=== PATIENT | female | born 1995 | race Caucasian/White ===

== ENCOUNTER 2016-12-16 18:47 | Emergency (ER) | payer OTHER ==
[2016-12-16 18:59] VITALS: BP 148/96
[2016-12-16] MEDS ORDERED: NS 0.9% 1000 ML* 1,000 ML IV ONE (19:16)
[2016-12-16] MEDS ORDERED: Ondansetron INJ* 2 MG/ML VIAL IV ONE (19:17)
[2016-12-16] MEDS ORDERED: Ketorolac INJ* 30 MG/ML 1 ML VIAL IV PUSH ONE (19:18)
--- NOTE | 2016-12-16 19:44 | UC ---
Complaint Female HPI - HPI Summary HPI Summary: LAST NIGHT FELT LIKE SHE HAD TO URINATE MORE FREQUENTLY. 1.5 HOURS AGO BEGAN TO HAVE EXQUISTELY PAINFUL LEFT FLANK PAIN. WITH VOMITNG AND NAUSEA. CURRENTLY ON PERIOD. HISTORY OF KIDNEY STONES ON RIGHT SIDE. NO FEVER. NO ABDOMINAL PAIN. - History Of Current Complaint Chief Complaint: UCBackPain Stated Complaint: POSSIBLE UTI Time Seen by Provider: 12/16/16 18:50 Hx Obtained From: Patient Hx Last Menstrual Period: 12/15/16 ?: No Onset/Duration: Sudden Onset, Lasting Hours, Still Present Timing: Intermittent, Lasting Hours Severity Initially: Mild - LAST NIGHT Severity Currently: Severe - 1.5 HOURS AGO Character: Sharp, Cramping Aggravating Factor(s): Movement, Urination Associated Signs And Symptoms: Positive: Back Pain, Nausea, Vomiting(# Of Episodes =) - Allergies/Home Medications Allergies/Adverse Reactions: Allergies Allergy/AdvReac Type Severity Reaction Status Date / Time No Known Allergies Allergy Verified 02/20/14 08:08 Home Medications: Home Medications Norethindr/Eth Estradiol(Nf) [Lo Loestrin Fe (NF)] 1 tab PO DAILY 12/16/16 [ History Confirmed 12/16/16] PMH/Surg Hx/FS Hx/Imm Hx Previously Healthy: Yes Endocrine History Of: Denies: Diabetes, Thyroid Disease Cardiovascular History Of: Denies: Cardiac Disorders, Hypertension Respiratory History Of: Denies: COPD, Asthma GI/ History Of: Reports: Kidney Stones - RT 10/24/13 Denies: Ulcer Neurological History Of: Reports: Seizures - COMPLEX PARTIAL SEIZURE DISORDER, LAST SPRING - Surgical History Surgical History: Yes Surgery Procedure, Year, and Place: ADENOIDECTOMY, AGE 5, [facility] lithotripsy, bladder polyp removal - Family History Known Family History: Positive: Renal Disease - RIGHT SIDED KIDENY STONES - Social History Occupation: Student Lives: With Family Alcohol Use: None Substance Use Type: None Smoking Status (MU): Never Smoked Tobacco Review of Systems Constitutional: Negative Skin: Negative Eyes: Negative ENT: Negative Respiratory: Negative Cardiovascular: Negative Gastrointestinal: Vomiting Genitourinary: Dysuria, Hematuria, Frequency, Urgency Motor: Negative Neurovascular: Negative Musculoskeletal: Negative Neurological: Negative Psychological: Negative All Other Systems Reviewed And Are Negative: Yes Physical Exam Triage Information Reviewed: Yes Appearance: Well-Appearing, Well-Nourished, Pain Distress Vital Signs: Initial Vital Signs Temp 98.1 F 12/16/16 18:54 Pulse 109 12/16/16 18:54 Resp 18 12/16/16 18:54 BP 148/96 12/16/16 18:54 Pulse Ox 97 12/16/16 18:54 Vital Signs Reviewed: Yes Eye Exam: Normal ENT Exam: Normal ENT: Positive: Normal ENT inspection, Hearing grossly normal, Pharynx normal, TMs normal Dental Exam: Normal Neck: Positive: Supple, Nontender, No Lymphadenopathy Respiratory Exam: Normal Respiratory: Positive: Chest non-tender, Lungs clear, Normal breath sounds, No respiratory distress Cardiovascular Exam: Normal Cardiovascular: Positive: RRR, No Murmur, Pulses Normal Abdomen Description: Positive: Nontender, No Organomegaly, CVA Tenderness (L) Musculoskeletal Exam: Normal Musculoskeletal: Positive: Strength Intact Neurological Exam: Normal Psychological Exam: Normal Skin Exam: Normal Complaint Female Dx - Differential Dx/Diagnosis Differential Diagnosis/HQI/PQRI: Renal Colic, Urinary Tract Infection Provider Diagnoses: POSSIBLE LEFT RENAL CALCULI. LEFT FLANK PAIN - Physician Notifications Discussed Patient Care With: DR KING Time Discussed With Above Provider: 19:00 Instructed by Provider To: Will See In ED Discharge - Discharge Plan Condition: Stable Disposition: TRANS HIGHER LVL OF CARE FAC [facility] [[facility] Care Provider] -
== END 2016-12-16 19:39 | disposition short-term general hospital (02) ==
LOC: UCEAST 18:47
DX: M54.5 Low back pain (principal); R11.2 Nausea with vomiting, unspecified; R30.0 Dysuria; R31.9 Hematuria, unspecified; Z87.442 Personal history of urinary calculi; Z32.02 Encounter for pregnancy test, result negative
CPT/HCPCS: 81002; 81025; 96360; 96361; 96374; 96375; 99203; G0463; J1885; J2405

== ENCOUNTER 2016-12-16 20:02 | Emergency (ER) | payer OTHER ==
--- NOTE | 2016-12-16 20:37 | ED ---
Devorah Gordillo Janilya, scribed for Dk Duckworth MD on 12/16/16 at 2023 . GI/ HPI - HPI Summary HPI Summary: A 21 y/o female was BIBA from [facility] to [facility] presenting w/ a gradual onset of constant left flank pain starting today. Severity rated 8/10. Yesterday, pt says she felt normal. Pt reports that her early Sx felt like UTI Sx. For example , she felt like she had to urinate but could not. So she took cranberry tablets an hour before arrival to [facility]. She also started having a throbbing sensation in her urethra area. However, the pain worsened at [facility]. Pt states that it spread to the kidney area on the left side. In addition, pt reports nausea, unsure about fever. Pt denies vomiting. Pt is currently on her period. PMHx kidney stones in 2013 on right side, several UTI's (last in June 2016). - History of Current Complaint Chief Complaint: EDFlankPain Stated Complaint: LEFT FLANK PAIN Hx Obtained From: Patient Onset/Duration: Started Hours Ago, Atraumatic, Still Present Timing: Constant Severity: Moderate Current Severity: Moderate Pain Intensity: 3 Location of Pain: Flank Pain Characteristics: Dull, Other: - throbbing Associated Signs and Symptoms: Positive: Nausea. Negative: Vomiting, Fever Aggravating Factor(s): Nothing Alleviating Factor(s): Nothing - Allergy/Home Medications Allergies/Adverse Reactions: Allergies Allergy/AdvReac Type Severity Reaction Status Date / Time No Known Allergies Allergy Verified 02/20/14 08:08 PMH/Surg Hx/FS Hx/Imm Hx Previously Healthy: Yes Endocrine/Hematology History: Denies: Hx Diabetes, Hx Thyroid Disease Cardiovascular History: Denies: Hx Hypertension, Other Cardiovascular Problems/Disorders Respiratory History: Denies: Hx Asthma, Hx Chronic Obstructive Pulmonary Disease (COPD), Other Respiratory Problems/Disorders GI History: Denies: Hx Ulcer, Other GI Disorders History: Reports: Hx Kidney Stones - RT 10/24/13 Musculoskeletal History: Denies: Other Musculoskeletal History Sensory History: Reports: Hx Contacts or Glasses - CONTACTS Denies: Hx Hearing Aid Opthamlomology History: Reports: Hx Contacts or Glasses - CONTACTS Neurological History: Reports: Hx Seizures - COMPLEX PARTIAL SEIZURE DISORDER, LAST SPRING - Surgical History Surgery Procedure, Year, and Place: ADENOIDECTOMY, AGE 5, CONN lithotripsy, bladder polyp removal Hx Anesthesia Reactions: Yes - GRANDMOTHER- N/V Infectious Disease History: No Infectious Disease History: Reports: Traveled Outside the [place] in Last 30 Days - [place] Denies: Hx Clostridium Difficile, Hx Hepatitis, Hx Human Immunodeficiency Virus (HIV), Hx of Known/Suspected MRSA, Hx Shingles, Hx Tuberculosis, Hx Known/ Suspected VRE, Hx Known/Suspected VRSA, History Other Infectious Disease - Family History Known Family History: Positive: Cardiac Disease, Hypertension, Diabetes, Renal Disease - RIGHT SIDED KIDENY STONES - Social History Occupation: Student - [place] Lives: Alone Alcohol Use: None Substance Use Type: Reports: None Smoking Status (MU): Never Smoked Tobacco Review of Systems Negative: Fever Positive: Nausea. Negative: Vomiting Positive: flank pain All Other Systems Reviewed And Are Negative: Yes Physical Exam Triage Information Reviewed: Yes Vital Signs On Initial Exam: Initial Vitals Temp Pulse Resp BP Pulse Ox 98.2 F 67 16 130/83 96 12/16/16 20:06 12/16/16 20:06 12/16/16 20:06 12/16/16 20:06 12/16/16 20:06 Vital Signs Reviewed: Yes Appearance: Positive: Well-Appearing, Pain Distress - mildly uncomfortable Skin: Positive: Warm Eyes: Positive: GOPAL ENT: Positive: Normal ENT inspection Neck: Positive: Supple Respiratory/Lung Sounds: Positive: Clear to Auscultation, Breath Sounds Present Cardiovascular: Positive: Normal Abdomen Description: Positive: Nontender, No Organomegaly, Soft. Negative: CVA Tenderness (R), CVA Tenderness (L) Bowel Sounds: Positive: Present Musculoskeletal: Positive: Strength/ROM Intact Neurological: Positive: Sensory/Motor Intact, Normal Gait Psychiatric: Positive: Normal Diagnostics - Vital Signs Vital Signs Temp Pulse Resp BP Pulse Ox 12/16/16 20:06 98.2 F 67 16 130/83 96 - Laboratory Result Diagrams: 12/16/16 20:40 12/16/16 20:40 Lab Statement: Any lab studies that have been ordered have been reviewed, and results considered in the medical decision making process. - CT abd/pel CT Interpretation: Positive (See Comments) - IMPRESSION: MINIMAL FULLNESS OF LEFT RENAL COLLECTING SYSTEM WITH A CALCULI AT THE LEFT URETEROVESICULAR JUNCTION MEASURING 2 MM. THIS MAY REPRESENT A RECENTLY PASSED CALCULI. CT Interpretation Completed By: Radiologist PIPO Course/Dx - Diagnoses Provider Diagnoses: Kidney stone Discharge - Discharge Plan Condition: Stable Disposition: HOME Patient Education Materials: Kidney Stones (ED) Referrals: [facility] [Primary Care Provider] - Additional Instructions: Follow up with your urologist as needed. The documentation as recorded by the Devorah mccoy Janilya accurately reflects the service I personally performed and the decisions made by me, Dk Duckworth MD.
[2016-12-16 20:52] LABS: Hematocrit 42 % (35-47); Hemoglobin 13.7 g/dl (12.0-16.0); Mean Corpuscular HGB Conc 33 g/dl (31-36); Mean Corpuscular Hemoglobin 29 pg (27-31); Mean Corpuscular Volume 88 fL (80-97); Mean Platelet Volume 7 um3 (7.4-10.4); Red Blood Count 4.72 10^6/ul (4.0-5.4); Red Cell Distribution Width 13 % (10.5-15); White Blood Count 8.1 10^3/ul (3.5-10.8)
[2016-12-16 20:52] LABS: Urine Bacteria 1+ (Absent); Urine Bilirubin Negative (Negative); Urine Glucose Negative (Negative); Urine Nitrite Negative (Negative)
[2016-12-16 21:05] LABS: ALT 13 U/L (7-52); AST 19 U/L (13-39); Albumin 4.5 g/dL (3.2-5.2); Alkaline Phosphatase 58 U/L (34-104); Anion Gap 9 mmol/L (2-11); Blood Urea Nitrogen 9 mg/dL (6-24); CO2 Carbon Dioxide 24 mmol/L (22-32); Calcium 9.9 mg/dL (8.6-10.3); Chloride 101 mmol/L (101-111); EGFR African American 138.1 (>60); EGFR Non-African American 107.4 (>60); Globulin 3.6 g/dL (2-4); Glucose 81 mg/dL (70-100); Potassium 3.7 mmol/L (3.5-5.0); Sodium 134 mmol/L (133-145); Total Protein 8.1 g/dL (6.4-8.9)
--- NOTE | 2016-12-16 21:28 | RAD ---
Indication: Left flank pain. CT of the abdomen and pelvis was performed without oral or IV contrast administration. Coronal and sagittal reconstructed images were obtained. Lung bases demonstrate no pleural fluid, nodules or masses. Heart is of normal size and configuration without evidence of pericardial effusion. Liver is normal in size. There are no focal lesions or intrahepatic biliary duct dilatation noted. Study is limited due to lack of IV contrast. Gallbladder demonstrates no calcified gallstones, pericholecystic fluid or wall thickening. The pancreas demonstrates no mass or pancreatic ductal dilatation. Spleen is normal in size. No adrenal lesions are noted. The kidneys demonstrates minimal fullness in the left renal collecting system. There is however a calculi at the left ureterovesicular junction. This measures approximately 2 mm. This may represent a recently passed calculi from the left kidney. The right kidney demonstrates nonobstructing calculi in the lower pole. Aorta and inferior vena cava are unremarkable. No dilated loops of bowel are noted. The appendix is visualized and is normal. The uterus and ovaries are unremarkable. No hernias are noted. The urinary bladder is otherwise unremarkable. Diverticulosis without definite evidence of diverticulitis is noted. IMPRESSION: MINIMAL FULLNESS OF LEFT RENAL COLLECTING SYSTEM WITH A CALCULI AT THE LEFT URETEROVESICULAR JUNCTION MEASURING 2 MM. THIS MAY REPRESENT A RECENTLY PASSED CALCULI.
[2016-12-16 22:00] VITALS: BP 119/77
== END 2016-12-16 21:58 | disposition home or self-care (01) ==
LOC: ED 20:02
DX: N20.0 Calculus of kidney (principal); Z87.442 Personal history of urinary calculi
CPT/HCPCS: 36415; 74176; 80053; 81002; 81003; 81015; 81025; 83605; 83735; 84702; 85025; 87086; 96360; 96361; 96374; 96375; 99203; 99282; G0463; J1885; J2405